=== PATIENT | female | born 1995 | race Caucasian/White ===

== ENCOUNTER 2016-12-06 19:52 | Emergency (ER) | payer BC ==
[2016-12-06] MEDS ORDERED: Sodium Chloride 0.9% 10 ML Syringe FLUSH PRN (20:55)
[2016-12-06] MEDS ORDERED: Sodium Chloride 0.9% 1,000 ML IV ONE (20:55)
[2016-12-06] MEDS ORDERED: diphenhydrAMINE 50 MG/ML SDV IVPUSH ONE (20:56)
[2016-12-06] MEDS ORDERED: Haloperidol Lactate 5 MG/ML SDV IVPUSH ONE (20:56)
[2016-12-06] MEDS ORDERED: Ondansetron 4 MG/2 ML SDV IVPUSH ONE (20:56)
[2016-12-06] MEDS ORDERED: Ketorolac 30 MG/ML SDV IVPUSH ONE (20:56)
--- NOTE | 2016-12-06 21:41 | EDM.PDOC ---
ED HPI GENERAL MEDICAL PROBLEM - General Chief Complaint: Headache Stated Complaint: HEADACHE Time Seen by Provider: 12/06/16 20:35 Source of Information: Reports: Patient History Limitations: Reports: No Limitations - History of Present Illness INITIAL COMMENTS - FREE TEXT/NARRATIVE: Patient is a 20-year-old female who presents to the ED complaining of migraine headache. Patient states it started approximately 11:00. She has some nausea and vomiting associated with the onset of the headache. Headache is located to the left side of her head described as a sharp throbbing sensation. She does have some photophobia noted. She's never been formally diagnosed with migraines. But notes that stress precipitates the onset. Headache is quite severe and is following similar pattern from previous episodes. Denies any recent trauma to her head, fever, vision changes, numbness or tingling to extremities, focal neurological deficits. In addition she's had some episodes of diarrhea today as well. Denies nausea/vomiting and diarrhea associated to GI bug. She has no prior medical history and currently taking no medications. Denies being . She does not smoke, only sporadically utilizes alcohol, and martinez snot use recreational drugs. Headache Pain Score (Numeric/FACES): 10 - Related Data Allergies Allergy/AdvReac Type Severity Reaction Status Date / Time No Known Allergies Allergy Verified 12/06/16 20:05 Home Meds: Home Meds Ondansetron [Zofran ODT] 4 mg PO Q6H PRN #10 tab.dis 12/06/16 [Rx] Rizatriptan Benzoate [Maxalt] 5 mg PO ASDIRECTED PRN #6 tablet 12/06/16 [Rx] Past Medical History Neurological History: Reports: Migraines - Past Surgical History HEENT Surgical History: Reports: Tonsillectomy Social & Family History - Family History Family Medical History: Noncontributory - Tobacco Use Smoking Status *Q: Never Smoker - Caffeine Use Caffeine Use: Reports: None - Recreational Drug Use Recreational Drug Use: No ED ROS GENERAL - Review of Systems Review Of Systems: ROS reveals no pertinent complaints other than HPI. - Physical Exam Exam: See Below Exam Limited By: No Limitations General Appearance: Alert, WD/WN, Mild Distress Eye Exam: Bilateral Eye: EOMI, Nystagmus (None found), PERRL Ears: Hearing Grossly Normal Nose: Normal Inspection Throat/Mouth: Normal Voice, No Airway Compromise Head Exam: Atraumatic, Normocephalic Neck: Normal Inspection, Supple, Non-Tender, Full Range of Motion Respiratory/Chest: No Respiratory Distress, Lungs Clear, Normal Breath Sounds, No Accessory Muscle Use Cardiovascular: Normal Peripheral Pulses, Regular Rate, Rhythm GI/Abdominal: Normal Bowel Sounds, Soft, Non-Tender, No Organomegaly, No Distention Neuro Exam (Abbreviated): Alert, Oriented, CN II-XII Intact, Normal Cognition, No Motor/Sensory Deficits, Other (Cerebellar function intact, no facial droop, no slurred speech, no weakness discrepancy is to the upper or lower extremities) Back Exam: Normal Inspection Extremities: Normal Inspection, Non-Tender, No Pedal Edema Psychiatric: Normal Affect, Normal Mood Skin Exam: Warm, Dry, Intact, Normal Color Course - Vital Signs Last Recorded V/S: Last Vital Signs Temp 96.6 F 12/06/16 20:02 Pulse 65 12/06/16 20:02 Resp 16 12/06/16 20:02 BP 129/53 L 12/06/16 20:02 Pulse Ox 99 12/06/16 20:02 - Orders/Labs/Meds Orders: Active Orders 24 hr Category Date Time Status Peripheral IV Care [RC] . DIRECTED Care 12/06/16 20:55 Active Sodium Chloride 0.9% [Saline Flush] Med 12/06/16 20:55 Active 10 ml FLUSH ASDIRECTED PRN Peripheral IV Insertion Adult [OM.PC] Stat Oth 12/06/16 20:55 Ordered Medication Orders Sodium Chloride (Saline Flush) 10 ml FLUSH ASDIRECTED PRN PRN Reason: Keep Vein Open Last Admin: 12/06/16 21:08 Dose: 10 ml Meds: Medications Generic Name Dose Route Start Last Admin Trade Name Freq PRN Reason Stop Dose Admin Sodium Chloride 10 ml 12/06/16 20:55 12/06/16 21:08 Saline Flush FLUSH 10 ml ASDIRECTED PRN Administration Keep Vein Open Discontinued Medications Generic Name Dose Route Start Last Admin Trade Name Freq PRN Reason Stop Dose Admin Diphenhydramine HCl 50 mg 12/06/16 20:56 12/06/16 21:06 Benadryl IVPUSH 12/06/16 20:57 50 mg ONETIME ONE Administration Haloperidol Lactate 5 mg 12/06/16 20:56 12/06/16 21:08 Haldol IVPUSH 12/06/16 20:57 5 mg ONETIME ONE Administration Sodium Chloride 1,000 mls @ 999 mls/hr 12/06/16 20:55 12/06/16 21:08 Normal Saline IV 12/06/16 21:55 999 mls/hr ONETIME ONE Administration Ketorolac Tromethamine 30 mg 12/06/16 20:56 12/06/16 21:07 Toradol IVPUSH 12/06/16 20:57 30 mg ONETIME ONE Administration Ondansetron HCl 4 mg 12/06/16 20:56 12/06/16 21:03 Zofran IVPUSH 12/06/16 20:57 4 mg ONETIME ONE Administration - Re-Assessments/Exams Free Text/Narrative Re-Assessment/Exam: Peripheral IV started with IV fluids, Toradol 30 mg IVP, Haldol 5 mg IVP, Benadryl 50 mg IVP, and Zofran 4 mg IVP. 12/06/162158 Reassessment, patient is sound asleep. When awoken states headache has subsided. Will discharge patient home to father. Departure - Departure Time of Disposition: 22:12 Disposition: Home, Self-Care 01 Condition: Good Clinical Impression: Migraine - Discharge Information Prescriptions: Ondansetron [Zofran ODT] 4 mg PO Q6H PRN #10 tab.dis PRN Reason: Nausea/Vomiting Rizatriptan Benzoate [Maxalt] 5 mg PO ASDIRECTED PRN #6 tablet PRN Reason: Headache/Pain Referrals: Maci Navarrete PEDIATRIC ONCOLOGIST [Primary Care Provider] - Forms: ED Department Discharge, ED Return to Work/School Form Additional Instructions: As discussed it do believe this is a migraine headache that has been aborted with sedative medications in the ED. I have provided a prescription for Maxalt medication use to abort migraine headaches with onset. Follow the prescription instructions as documented. Suggest going home this evening finding a dark room with no distractions allowing for sound sleep. Follow-up with your PCP the end of this week or first part of next week if headaches continue to recur. Return to ED for any new or worsening symptoms. - My Orders Last 24 Hours: My Active Orders 12/06/16 20:55 Peripheral IV Care [RC] . DIRECTED Sodium Chloride 0.9% [Saline Flush] 10 ml FLUSH ASDIRECTED PRN Peripheral IV Insertion Adult [OM.PC] Stat - Assessment/Plan Last 24 Hours: My Active Orders 12/06/16 20:55 Peripheral IV Care [RC] . DIRECTED Sodium Chloride 0.9% [Saline Flush] 10 ml FLUSH ASDIRECTED PRN Peripheral IV Insertion Adult [OM.PC] Stat
== END 2016-12-06 22:35 | disposition home or self-care (01) ==
LOC: JD.ED 19:52
DX: G43.909 Migraine, unspecified, not intractable, without status migrainosus (principal)
CPT/HCPCS: 96361; 96374; 96375; 99283; J1200; J1630; J1885; J2405; J7040; J7050; 99284

== ENCOUNTER 2018-10-18 20:55 | Emergency (ER) | payer BC ==
[2018-10-18] MEDS ORDERED: Sodium Chloride 0.9% 10 ML Syringe FLUSH PRN (21:59)
[2018-10-18] MEDS ORDERED: Ondansetron 4 MG/2 ML SDV IVPUSH ONE (21:59)
[2018-10-18] MEDS ORDERED: diphenhydrAMINE 50 MG/ML SDV IVPUSH ONE (21:59)
[2018-10-18] MEDS ORDERED: Ketorolac 30 MG/ML SDV IVPUSH ONE (21:59)
[2018-10-18] MEDS ORDERED: Sodium Chloride 0.9% 1,000 ML IV ONE (21:59)
--- NOTE | 2018-10-18 22:29 | EDM.PDOC ---
ED HPI GENERAL MEDICAL PROBLEM - General Chief Complaint: Headache Stated Complaint: HEADACHE/VOMITING Time Seen by Provider: 10/18/18 21:38 Source of Information: Reports: Patient History Limitations: Reports: No Limitations - History of Present Illness INITIAL COMMENTS - FREE TEXT/NARRATIVE: 22 year old female presents for evaluation and treatment of a migraine headache. States it started Suddenly around 1400 today. Is primarily located to the right amish and right eye. She reports associated symptoms of nausea, vomiting and photophobia. Has vomited about 2 or 3 times. She takes ibuprofen earlier without any relief. Reports migraine is currently a 10 out of 10. States that she has a history of migraines and gets these every other day. He is not on any medication other than [id number] medications for migraines. Reports recent upper respiratory illness with cough and chills. Denies any ear pain or sore throat. No recent trauma such as falls or motor vehicle accident. PCP is Marilee Oro. Review of records show she has been seen in the ER on one other occasion for migraines. Treated with Benadryl, fluids, Zofran, Toradol and Haldol with resolution of symptoms. Headache Pain Score (Numeric/FACES): 10 - Related Data Allergies Allergy/AdvReac Type Severity Reaction Status Date / Time No Known Allergies Allergy Verified 10/18/18 21:09 Home Meds: Home Meds ALPRAZolam [Xanax] 0.5 mg PO Q12HR PRN 10/18/18 [History] Escitalopram Oxalate [Lexapro] 5 mg PO DAILY 10/18/18 [History] SUMAtriptan Succinate [Imitrex] 25 mg PO ASDIRECTED PRN #15 tablet 10/18/18 [Rx] Past Medical History Neurological History: Reports: Migraines - Past Surgical History HEENT Surgical History: Reports: Tonsillectomy Social & Family History - Family History Family Medical History: Noncontributory - Tobacco Use Smoking Status *Q: Never Smoker - Caffeine Use Caffeine Use: Reports: Coffee - Recreational Drug Use Recreational Drug Use: No ED ROS GENERAL - Review of Systems Review Of Systems: See Below Constitutional: Reports: Chills. Denies: Fever HEENT: Reports: Other (reports photophobia). Denies: Ear Pain, Throat Pain Respiratory: Reports: Cough GI/Abdominal: Reports: Nausea, Vomiting Neurological: Reports: Headache - Physical Exam Exam: See Below Exam Limited By: No Limitations General Appearance: Alert, WD/WN, No Apparent Distress Eye Exam: Bilateral Eye: EOMI, Normal Inspection, PERRL Ears: Normal External Exam, Normal Canal, Hearing Grossly Normal, Normal TMs Nose: Normal Inspection Throat/Mouth: Normal Inspection, Normal Lips, Normal Oropharynx, Normal Voice, No Airway Compromise Head Exam: Atraumatic, Normocephalic Neck: Normal Inspection Respiratory/Chest: No Respiratory Distress, Lungs Clear, Normal Breath Sounds Cardiovascular: Normal Peripheral Pulses, Regular Rate, Rhythm, No Murmur Neuro Exam (Abbreviated): Alert, Oriented, Normal Cognition Psychiatric: Normal Affect, Normal Mood Skin Exam: Warm, Dry, Normal Color Course - Vital Signs Last Recorded V/S: Last Vital Signs Temp 97.6 F 10/18/18 21:07 Pulse 67 10/18/18 21:07 Resp 18 10/18/18 21:07 BP 124/52 L 10/18/18 21:07 Pulse Ox 99 10/18/18 21:07 - Orders/Labs/Meds Orders: Active Orders 24 hr Category Date Time Status Peripheral IV Care [RC] . DIRECTED Care 10/18/18 21:59 Active Peripheral IV Insertion Adult [OM.PC] Routine Oth 10/18/18 21:59 Ordered Meds: Medications Discontinued Medications Generic Name Dose Route Start Last Admin Trade Name Corkyq PRN Reason Stop Dose Admin Diphenhydramine HCl 50 mg 10/18/18 21:59 10/18/18 22:21 Benadryl IVPUSH 10/18/18 22:00 50 mg ONETIME ONE Administration Haloperidol Lactate 5 mg 10/18/18 22:38 10/18/18 22:45 Haldol IVPUSH 10/18/18 22:39 5 mg ONETIME ONE Administration Sodium Chloride 1,000 mls @ 999 mls/hr 10/18/18 21:59 10/18/18 22:20 Normal Saline IV 10/18/18 22:59 999 mls/hr ONETIME ONE Administration Ketorolac Tromethamine 30 mg 10/18/18 21:59 10/18/18 22:20 Toradol IVPUSH 10/18/18 22:00 30 mg ONETIME ONE Administration Ondansetron HCl 4 mg 10/18/18 21:59 10/18/18 22:20 Zofran IVPUSH 10/18/18 22:00 4 mg ONETIME ONE Administration Sodium Chloride 10 ml 10/18/18 21:59 10/18/18 22:21 Saline Flush FLUSH 10 ml ASDIRECTED PRN Administration Keep Vein Open - Re-Assessments/Exams Free Text/Narrative Re-Assessment/Exam: 10/18/18 22:50 checked on patient. Migraine improved. Now 06/30. Will order haldol IV and check on her shortly. 10/18/18 23:15 checked on patient. Sleeping but arousable. Feels comfortable going home at this point. Will discharge home at this time. Discharge instructions as documented. Departure - Departure Time of Disposition: 23:16 Disposition: Home, Self-Care 01 Condition: Good Clinical Impression: Migraine - Discharge Information *PRESCRIPTION DRUG MONITORING PROGRAM REVIEWED*: No *COPY OF PRESCRIPTION DRUG MONITORING REPORT IN PATIENT LISA: No Prescriptions: SUMAtriptan Succinate [Imitrex] 25 mg PO ASDIRECTED PRN #15 tablet PRN Reason: Headache Instructions: Migraine Headache, [id number] Referrals: PCP,Alberto [Primary Care Provider] - Keke Oro NP [Ordering Only Provider] - Forms: ED Department Discharge, ED Return to Work/School Form Additional Instructions: go home and rest in a dark quiet room. Make sure you're drinking plenty of fluids. may continue use [id number] Tylenol or Motrin as needed for migraines. May try the Imitrex 1 tab at onset of migraine, repeat after 2 hours migraine persists. Follow up with your primary care provider for further management of your migraines. Please return to the ER if your symptoms change or worsen. - My Orders Last 24 Hours: My Active Orders 10/18/18 21:59 Peripheral IV Care [RC] . DIRECTED Peripheral IV Insertion Adult [OM.PC] Routine - Assessment/Plan Last 24 Hours: My Active Orders 10/18/18 21:59 Peripheral IV Care [RC] . DIRECTED Peripheral IV Insertion Adult [OM.PC] Routine
[2018-10-18] MEDS ORDERED: Haloperidol Lactate 5 MG/ML SDV IVPUSH ONE (22:38)
== END 2018-10-18 23:30 | disposition home or self-care (01) ==
LOC: JD.ED 20:55
DX: G43.909 Migraine, unspecified, not intractable, without status migrainosus (principal); Z79.899 Other long term (current) drug therapy
CPT/HCPCS: 96361; 96374; 96375; 99283; J1200; J1630; J1885; J2405; J7040

== ENCOUNTER 2019-02-19 18:39 | Emergency (ER) | payer BC ==
--- NOTE | 2019-02-19 19:37 | EDM.PDOC ---
ED HPI GENERAL MEDICAL PROBLEM - General Chief Complaint: Headache Stated Complaint: HEADACHE Time Seen by Provider: 02/19/19 19:17 - History of Present Illness INITIAL COMMENTS - FREE TEXT/NARRATIVE: 23-year old female presents the emergency room with a migraine headache. Headache started earlier this afternoon gradual onset. Acted like a typical migraine for her however this one has a throbbing sensation that she thinks is different from her typical. She is not had any fevers or chills however she has had loose stools 1 or 2 daily for about the last 3 days nausea and vomiting started with a headache. She has associated photophobia nausea and vomiting. She cannot recall an aura with her headaches. Treatments [employer]: Reports: NSAIDS Headache Pain Score (Numeric/FACES): 10 - Related Data Allergies Allergy/AdvReac Type Severity Reaction Status Date / Time cat dander Allergy Itching Verified 02/19/19 18:55 Home Meds: Home Meds ALPRAZolam [Xanax] 0.5 mg PO Q12HR PRN 10/18/18 [History] Norgestimate-Ethinyl Estradiol [Sprintec 28 Day Tablet] 1 tab PO DAILY 02/19/19 [History] Sertraline [Zoloft] 100 mg PO DAILY 02/19/19 [History] Past Medical History Neurological History: Reports: Migraines Psychiatric History: Reports: Anxiety, Depression - Past Surgical History HEENT Surgical History: Reports: Tonsillectomy Social & Family History - Family History Family Medical History: Noncontributory - Tobacco Use Smoking Status *Q: Never Smoker Second Hand Smoke Exposure: No - Caffeine Use Caffeine Use: Reports: Coffee, Energy Drinks, Soda, Tea - Recreational Drug Use Recreational Drug Use: No ED ROS GENERAL - Review of Systems Review Of Systems: See Below Constitutional: Reports: No Symptoms HEENT: Reports: Other (Photophobia) Respiratory: Reports: No Symptoms Cardiovascular: Reports: No Symptoms Endocrine: Reports: No Symptoms GI/Abdominal: Reports: Abdominal Pain (The abdominal pain seems to be associated with the vomiting), Diarrhea, Nausea, Vomiting : Reports: No Symptoms Musculoskeletal: Reports: No Symptoms Skin: Reports: No Symptoms Neurological: Reports: Headache. Denies: Pre-Existing Deficit, Seizure, Trouble Speaking, Gait Disturbance Psychiatric: Reports: No Symptoms - Physical Exam Exam: See Below Exam Limited By: No Limitations General Appearance: Alert, Moderate Distress (Discomfort nausea and vomiting) Eye Exam: Bilateral Eye: EOMI, Normal Inspection, PERRL Ears: Normal External Exam, Normal Canal, Hearing Grossly Normal, Normal TMs, Other (He has had ear tubes and in the past with associated scarring) Nose: Normal Inspection, Normal Mucosa, No Blood Throat/Mouth: Normal Inspection, Normal Lips, Normal Teeth, Normal Gums, Normal Oropharynx, Normal Voice, No Airway Compromise Head Exam: Atraumatic, Normocephalic Neck: Normal Inspection, Supple, Non-Tender, Full Range of Motion. No: Limited Range of Motion, Lymphadenopathy (L), Lymphadenopathy (R), Tender Midline Respiratory/Chest: No Respiratory Distress, Lungs Clear, Normal Breath Sounds Cardiovascular: Regular Rate, Rhythm, No Edema, No Murmur GI/Abdominal: Normal Bowel Sounds, Soft, Non-Tender, No Mass Neuro Exam (Abbreviated): Other (The patient is able to fully participate in a neurologic examination. Cranial nerves II through XII grossly intact all muscle groups the upper and lower extremities are equal and appropriate bilaterally. Deep tendon reflexes at the brachioradialis and patella tendons are equal and appropriate bilaterally. Cerebellar testing is entirely within normal limits) Back Exam: Normal Inspection. No: CVA Tenderness (L), CVA Tenderness (R) Extremities: Normal Inspection, No Pedal Edema Psychiatric: Normal Affect, Normal Mood Skin Exam: Warm, Dry, Intact Course - Vital Signs Last Recorded V/S: Last Vital Signs Temp 36.6 C 02/19/19 18:50 Pulse 85 02/19/19 18:50 Resp 18 02/19/19 18:50 BP 132/75 02/19/19 18:50 Pulse Ox 98 02/19/19 18:50 - Orders/Labs/Meds Meds: Medications Discontinued Medications Generic Name Dose Route Start Last Admin Trade Name Freq PRN Reason Stop Dose Admin Diphenhydramine HCl 50 mg 02/19/19 19:39 02/19/19 19:57 Benadryl IVPUSH 02/19/19 19:40 50 mg ONETIME ONE Administration Lactated Ringer's 1,000 mls @ 999 mls/hr 02/19/19 19:39 02/19/19 19:56 Ringers, Lactated IV 02/19/19 20:39 999 mls/hr .BOLUS ONE Administration Ketorolac Tromethamine 30 mg 02/19/19 19:39 02/19/19 19:57 Toradol IVPUSH 02/19/19 19:40 30 mg ONETIME ONE Administration Ondansetron HCl 4 mg 02/19/19 19:39 02/19/19 19:57 Zofran IVPUSH 02/19/19 19:40 4 mg ONETIME ONE Administration - Re-Assessments/Exams Free Text/Narrative Re-Assessment/Exam: 02/19/19 20:51 Received Toradol Benadryl and Zofran as well as a liter of LR and is much better she thinks she is good enough to go home and sleep this off.. Departure - Departure Time of Disposition: 20:52 Disposition: Home, Self-Care 01 Clinical Impression: Migraine - Discharge Information Referrals: Keke Oro NP [Primary Care Provider] - Forms: ED Department Discharge Additional Instructions: Go home and go straight to bed. Return to the emergency room with any questions problems or worsening symptoms Sepsis Event Note - Evaluation Sepsis Screening Result: No Definite Risk - Focused Exam Vital Signs: Vital Signs Temp Pulse Resp BP Pulse Ox 02/19/19 18:50 36.6 C 85 18 132/75 98 Date Exam was Performed: 02/19/19 Time Exam was Performed: 20:51
[2019-02-19] MEDS ORDERED: Ketorolac 30 MG/ML SDV IVPUSH ONE (19:39)
[2019-02-19] MEDS ORDERED: diphenhydrAMINE 50 MG/ML SDV IVPUSH ONE (19:39)
[2019-02-19] MEDS ORDERED: Lactated Ringers 1,000 ML IV ONE (19:39)
[2019-02-19] MEDS ORDERED: Ondansetron 4 MG/2 ML SDV IVPUSH ONE (19:39)
== END 2019-02-19 21:05 | disposition home or self-care (01) ==
LOC: JD.ED 18:39
DX: G43.909 Migraine, unspecified, not intractable, without status migrainosus (principal); F41.9 Anxiety disorder, unspecified; F32.9 Major depressive disorder, single episode, unspecified; Z79.899 Other long term (current) drug therapy; Z91.048 Other nonmedicinal substance allergy status
CPT/HCPCS: 96361; 96374; 96375; 99283; J1200; J1885; J2405; J7120

== ENCOUNTER 2021-03-03 09:07 | Day surgery (SDC) | payer BC ==
[~2021-03-03 09:07] MED LIST: Lactated Ringers 1,000 ML IV SCH; Lidocaine 1%/Sod Bicarbonate in NS 8.4% 1 ML Syringe IDERM PRN; Sodium Chloride 0.9% 10 ML Syringe FLUSH SCH
[2021-03-03] MEDS ORDERED: Bupivacaine 0.5% 30 ML SDV ONE (09:14)
== END 2021-03-03 11:08 | disposition home or self-care (01) ==
LOC: JD.SDS 09:07
PROVIDERS: ATTEND Surgery
DX: N63.20 Unspecified lump in the left breast, unspecified quadrant (principal); F41.9 Anxiety disorder, unspecified; G43.909 Migraine, unspecified, not intractable, without status migrainosus; Z88.8 Allergy status to other drugs, medicaments and biological substances; Z91.011 Allergy to milk products; Z79.899 Other long term (current) drug therapy; Z98.890 Other specified postprocedural states
CPT/HCPCS: 19083; J3490; J7120; 00400

== ENCOUNTER 2021-03-23 04:34 | Inpatient (IN) | payer BC ==
[2021-03-23] MEDS ORDERED: Citric Acid/Sodium Citrate Solution 30 ML Cup PO ONE (05:05)
[2021-03-23] MEDS ORDERED: Metoclopramide 10 MG/2 ML SDV IVPUSH ONE (05:05)
[2021-03-23] MEDS ORDERED: Lactated Ringers 1,000 ML IV SCH (05:15)
[2021-03-23] MEDS ORDERED: Oxytocin/Lactated Ringers 10 UNIT/1,000 ML BAG IV SCH (05:15)
[2021-03-23] MEDS ORDERED: Bupivacaine 0.5% 30 ML SDV ONE (05:33)
[2021-03-23] MEDS ORDERED: fentaNYL 100 MCG/2 ML SDV IVPUSH PRN (05:34)
[2021-03-23] MEDS ORDERED: Ondansetron 4 MG/2 ML SDV IVPUSH PRN (05:34)
[2021-03-23] MEDS ORDERED: diphenhydrAMINE 50 MG/ML SDV IVPUSH PRN ×2 (05:34→09:40)
[2021-03-23] MEDS ORDERED: fentaNYL 100 MCG/2 ML SDV ONE (05:36)
[2021-03-23] MEDS ORDERED: Bupivacaine 0.75%/D5W 2 ML Amp ONE (05:37)
[2021-03-23] MEDS ORDERED: Oxytocin 10 Units/1 ML SDV ONE (05:37)
[2021-03-23] MEDS ORDERED: ceFAZolin 1 GM Vial ONE ×2 (05:37→05:57)
[2021-03-23] MEDS ORDERED: Morphine PF 10 MG/10 ML SDV ONE (05:37)
[2021-03-23] MEDS ORDERED: Lactated Ringers 1,000 ML ONE ×2 (06:25→06:40)
[2021-03-23] MEDS ORDERED: Ketorolac 30 MG/ML SDV ONE (06:45)
[2021-03-23] MEDS ORDERED: Ondansetron 4 MG/2 ML SDV ONE (06:45)
[2021-03-23] MEDS ORDERED: Sodium Chloride 0.9% 10 ML Syringe FLUSH SCH (09:00)
[2021-03-23] MEDS ORDERED: Dextrose 5%-Lactated Ringers 1,000 ML IV SCH (09:40)
[2021-03-23] MEDS ORDERED: ePHEDrine 50 MG/ML SDV IVPUSH PRN (09:40)
[2021-03-23] MEDS ORDERED: Naloxone 0.4 MG/ML SDV IVPUSH PRN (09:40)
[2021-03-23] MEDS: Ibuprofen 600 MG Tab PO PRN (13:31)
[2021-03-23] MEDS: Acetaminophen/oxyCODONE 325-5 MG Tab PO PRN ×2 (15:27→21:20)
[2021-03-24] MEDS: Ibuprofen 600 MG Tab PO PRN ×3 (01:19→18:27)
[2021-03-24] MEDS: Acetaminophen/oxyCODONE 325-5 MG Tab PO PRN ×4 (07:48→20:51)
[2021-03-24] MEDS: Docusate Sodium 100 MG Cap PO PRN (08:28)
[2021-03-24] MEDS: Simethicone 80 MG Tab.Chew PO SCH ×4 (12:33→21:59)
[2021-03-25] MEDS: Ibuprofen 600 MG Tab PO PRN ×2 (01:09→07:44)
[2021-03-25] MEDS: Acetaminophen/oxyCODONE 325-5 MG Tab PO PRN ×3 (01:10→12:51)
[2021-03-25] MEDS: Docusate Sodium 100 MG Cap PO PRN (01:10)
[2021-03-25] MEDS: Simethicone 80 MG Tab.Chew PO SCH ×2 (07:44→11:11)
== END 2021-03-25 15:10 | disposition home or self-care (01) | DRG 540 ==
LOC: JD.OB 04:34 → JD.OBCHECK 04:34 → JD.OB 05:06
PROVIDERS: ADMIT Obstetrics & Gynecology; ATTEND Obstetrics & Gynecology
PROC: 10D00Z1 Extraction of Products of Conception, Low, Open Approach (ICD-10-PCS; principal; 2021-03-23)
DX: O32.1XX0 Maternal care for breech presentation, not applicable or unspecified (principal); Z3A.38 38 weeks gestation of pregnancy; Z37.0 Single live birth; Z20.822 Contact with and (suspected) exposure to COVID-19
CPT/HCPCS: 01961; 36415; 59025; 85025; 86592; 86850; 86900; 86901; A9270-GY; J0690; J1885; J2274; J2370; J2405; J2590; J2765; J3010; J3490; J7120; J7121; U0002

== ENCOUNTER 2024-11-18 16:43 | Emergency (ER) | payer OTHER, BC ==
[2024-11-18] MEDS ORDERED: Naloxone 0.4 MG/ML SDV IVPUSH PRN (16:52)
[2024-11-18] MEDS: Ketorolac 60 MG/2 ML SDV IM ONE (17:17)
[2024-11-18] MEDS: Ondansetron 4 MG/2 ML SDV IVPUSH ONE (17:43)
[2024-11-18] MEDS: Diphtheria,Pertussis(Acell),Tetanus Vaccine 0.5 ML Syringe IM ONE (17:50)
[2024-11-18] MEDS: Propofol 200 MG/20 ML SDV IVPUSH ONE (18:45)
[2024-11-18] MEDS: Silver Sulfadiazine 1% Crm 400 GM Jar TOP ONE (19:20)
[2024-11-18] MEDS: Acetaminophen/oxyCODONE 325-5 MG Tab PO ONE (19:20)
[2024-11-19] MEDS: Propofol 200 MG/20 ML SDV ONE (12:40)
== END 2024-11-18 19:47 | disposition home or self-care (01) ==
LOC: JD.ED 16:43
DX: S52.571A Other intraarticular fracture of lower end of right radius, initial encounter for closed fracture (principal); S40.212A Abrasion of left shoulder, initial encounter; T24.211A Burn of second degree of right thigh, initial encounter; Z79.899 Other long term (current) drug therapy; V29.408A Other motorcycle driver injured in collision with unspecified motor vehicles in traffic accident, initial encounter
CPT/HCPCS: 16020; 25605; 73090; 73100; 73110; 90471; 90715; 96372; 96374; 99152; 99153; 99284; A9270; J1171; J1885; J2405; J2704

== ENCOUNTER 2024-11-20 18:56 | Emergency (ER) | payer BC ==
[2024-11-20] MEDS ORDERED: Sodium Chloride 0.9% 10 ML Syringe FLUSH PRN (19:21)
[2024-11-20] MEDS: Ketorolac 30 MG/ML SDV IVPUSH ONE (19:48)
[2024-11-20] MEDS: diphenhydrAMINE 50 MG/ML SDV IVPUSH ONE (19:50)
[2024-11-20 20:08] LABS: BASOPHILS ABSOLUTE AUTO 0.0 K/mm3 (0.0-0.2); BASOPHILS PERCENT AUTO 0.2 % (0.0-1.0); EOSINOPHILS ABSOLUTE AUTO 0.0 K/mm3 (0.0-0.4); EOSINOPHILS PERCENT AUTO 0.0 % (0.0-6.0); IMMATURE GRAN ABSOLUTE AUTO 0.03 K/mm3 (0.00-0.05); IMMATURE GRAN PERCENT AUTO 0.3 % (0.0-0.4); LYMPHOCYTES ABSOLUTE AUTO 0.8 K/mm3 (1.0-4.8); LYMPHOCYTES PERCENT AUTO 6.8 % (24.0-44.0); MEAN PLATELET VOLUME 10.8 fl (9.4-12.3); MONOCYTES ABSOLUTE AUTO 0.5 K/mm3 (0.0-0.8); MONOCYTES PERCENT AUTO 4.9 % (0.0-8.0); NEUTROPHILS ABSOLUTE AUTO 9.6 K/mm3 (1.8-7.7); NEUTROPHILS PERCENT AUTO 87.8 % (41.0-71.0); NRBC ABSOLUTE 0.00 (0.00-0.02); NRBC PERCENT 0.0 % (0.0-0.2); PLATELET COUNT,PLT 290 K/mm3 (150-400); RED BLOOD CELL COUNT 5.05 M/mm3 (4.10-5.30); WHITE BLOOD CELL COUNT,WBC 10.95 K/mm3 (3.9-11.3)
[2024-11-20 20:41] LABS: A/G RATIO 1.1 (1-2); ALANINE AMINOTRANSFERASE,ALT 33.0 U/L (14-59); ASPARTATE AMNIOTRANSFERASE,AST 30.0 U/L (15-37); BILIRUBIN TOTAL 1.4 mg/dL (0.2-1.0); BLOOD UREA NITROGEN,BUN 10.0 mg/dL (7-18); CARBON DIOXIDE,CO2 26.0 mEq/L (21-32); CHLORIDE,CL 106.0 mEq/L (98-107); CREATININE 0.9 mg/dL (0.55-1.02); EST CRCL DRUG DOSING (CG) 114.15 mL/min; ESTIMATED GFR 89.0 mL/min (>60); GLUCOSE RANDOM 94.0 mg/dL (70-99); PROTEIN TOTAL,TP 7.5 g/dl (6.4-8.2); SODIUM,NA 141.0 mEq/L (136-145)
[2024-11-20 20:44] LABS: POTASSIUM,K 4.1 mEq/L (3.5-5.1)
== END 2024-11-20 21:05 | disposition home or self-care (01) ==
LOC: JD.ED 18:56
DX: R11.2 Nausea with vomiting, unspecified (principal); G40.909 Epilepsy, unspecified, not intractable, without status epilepticus; Z91.011 Allergy to milk products; Z91.048 Other nonmedicinal substance allergy status; Z88.8 Allergy status to other drugs, medicaments and biological substances
CPT/HCPCS: 36415; 80053; 83735; 85025; 96361; 96374; 96375; 99284; J1200; J1885; J2765; J7030

== ENCOUNTER 2024-11-23 08:25 | Day surgery (SDC) | payer BC ==
[~2024-11-23 08:25] MED LIST changes: -Lactated Ringers 1,000 ML IV SCH; -Lidocaine 1%/Sod Bicarbonate in NS 8.4% 1 ML Syringe IDERM PRN; +Propofol 200 MG/20 ML SDV ONE; +Sodium Chloride 0.9% 10 ML Syringe FLUSH PRN; +dexmedeTOMIDine HCl 200 MCG/2 ML SDV ONE; +fentaNYL 100 MCG/2 ML SDV ONE
[2024-11-23] MEDS ORDERED: Ondansetron 4 MG/2 ML SDV ONE (08:45)
[2024-11-23] MEDS ORDERED: Propofol 200 MG/20 ML SDV ONE (08:54)
[2024-11-23] MEDS: Lactated Ringers 1,000 ML IV SCH (09:10)
[2024-11-23] MEDS: Acetaminophen/oxyCODONE 325-5 MG Tab PO PRN (10:47)
[2024-11-23] MEDS: Ketorolac 30 MG/ML SDV IVPUSH PRN (10:48)
[2024-11-23] MEDS: fentaNYL 100 MCG/2 ML SDV IVPUSH PRN (10:48)
== END 2024-11-23 11:35 | disposition home or self-care (01) ==
LOC: JD.SDS 08:25
PROVIDERS: ATTEND Orthopaedic Surgery
DX: S52.501A Unspecified fracture of the lower end of right radius, initial encounter for closed fracture (principal); Z88.8 Allergy status to other drugs, medicaments and biological substances; Z91.09 Other allergy status, other than to drugs and biological substances; Z79.899 Other long term (current) drug therapy; Z91.0110 Allergy to milk products, unspecified
CPT/HCPCS: 25605; 76000; 81025; A9270; J1885; J2003; J2405; J2704; J3010; J7120; 01820